=== PATIENT | male | born 1990 | race Two or more races ===

== ENCOUNTER 2021-07-01 18:42 | Emergency (ER) | payer MEDICAID, OTHER ==
[~2021-07-01] VITALS: Ht 185.4 cm; Wt 149.7 kg
[2021-07-01 18:43] VITALS: BP 125/91
[2021-07-01] MEDS ORDERED: methylPREDNISolone SOD SUCC 125 MG/2 ML VL IM ONE (22:45)
== END 2021-07-01 23:28 | disposition home or self-care (01) ==
LOC: ER 18:44
DX: G54.0 Brachial plexus disorders (principal); G95.9 Disease of spinal cord, unspecified
CPT/HCPCS: 72125; 96372; 99284; J2930